=== PATIENT | female | born 1950 | race Hispanic/Latino ===

== ENCOUNTER 2017-09-13 18:41 | Observation (INO) | payer MEDICARE ==
[~2017-09-13] VITALS: Ht 157.5 cm; Wt 80.7 kg
[2017-09-13] MEDS ORDERED: METOPROLOL SUCC25 MG (19:27)
[2017-09-13] MEDS ORDERED: PANTOPRAZOLE 40 MG 10ML VIAL IV ONE (19:30)
[2017-09-13] MEDS ORDERED: B12 IM (19:30)
[2017-09-13] MEDS ORDERED: ASPIRIN 325 MG TAB PO ONE (19:30)
[2017-09-13] MEDS ORDERED: HYDROCHLOROTH12.5 M1 (19:30)
[2017-09-13] MEDS ORDERED: ASPIRIN 81 MG CHEW TAB PO ONE (22:00)
[2017-09-13] MEDS: FAMOTIDINE 20 MG TAB PO SCH (22:00)
[2017-09-13] MEDS ORDERED: SODIUM CHLORIDE FLUSH 10 ML SYR INJ PRN (22:00)
[2017-09-13] MEDS ORDERED: NITROGLYCERIN 0.4 MG SUBL SL PRN (22:00)
[2017-09-13] MEDS: METOPROLOL TARTRATE 25 MG TAB PO SCH (22:00)
[2017-09-13 23:15] VITALS: BP 140/65
[2017-09-14] VITALS (8 sets, daily range): BP systolic 126–146; BP diastolic 57–69
[2017-09-14 07:32] LABS: CREATINE KINASE MB 1.3 ng/mL (0-5.0)
[2017-09-14 08:21] LABS: CHOL/HDL RATIO 3.2 (3.0-3.6)
[2017-09-14] MEDS: FAMOTIDINE 20 MG TAB PO SCH ×2 (08:27→21:26)
[2017-09-14] MEDS: ASPIRIN 81 MG ENTERIC COATED PO SCH (08:27)
[2017-09-14] MEDS: METOPROLOL TARTRATE 25 MG TAB PO SCH ×2 (10:00→21:26)
[2017-09-14] MEDS ORDERED: ACETAMINOPHEN 325 MG TAB PO PRN (14:30)
[2017-09-14 15:15] LABS: CREATINE KINASE MB 1.2 ng/mL (0-5.0)
[2017-09-14 17:40] LABS: ALBUMIN 3.3 g/dL (3.5-5.0); BILIRUBIN,DIRECT 0.2 mg/dL (0.0-0.5)
[2017-09-14 18:11] LABS: CLARITY,URINE CLEAR (CLEAR); COLOR,URINE YELLOW (YELLOW)
[2017-09-14 18:12] LABS: BILIRUBIN,URINE NEGATIVE (NEGATIVE); KETONES,URINE NEGATIVE (NEGATIVE); LEUKOCYTE ESTERASE ,URINE NEGATIVE (NEGATIVE); NITRITE,URINE NEGATIVE (NEGATIVE); PROTEIN,URINE DIPSTICK NEGATIVE (NEGATIVE); URINE UROBILINOGEN 0.2 mg/dL (0.2 - 1)
[2017-09-14 18:19] LABS: BACTERIA,URINE MODERATE /HPF; EPITHELIAL CELLS,URINE MODERATE /LPF
[2017-09-14 18:20] LABS: MUCUS,URINE FEW (RARE)
--- NOTE | 2017-09-14 18:48 | History and Physical ---
CHIEF COMPLAINT: Chest pain and palpitations. HISTORY OF PRESENT ILLNESS: Ms. Manning is a 67-year-old female who went to the [facility] free standing emergency room with complaints of chest pain and palpitations. The patient started having these symptoms for 3 days, progressively getting worse. It was episodic. Denies any nausea or vomiting with it. She reported increasing urination. She has borderline diabetes. She reports that she has a history of aneurysm. The patient underwent a CTA of the chest, abdomen and pelvis in the free standing emergency room which is reported as no acute pulmonary embolism and no aneurysm. It reported ground glass in the CT of the chest. I have reviewed the images. It is due to poor inspiration, but there is no other evidence of any other disease in the lower lobes of the lung. There is cholelithiasis reported as well. REVIEW OF SYSTEMS: GENERAL: Denies any fever or chills. HEAD: Denies any head trauma. ENT: Denies any earache. CVS: Palpitations. GI: Denies any nausea or vomiting. : Increased urinary frequency. MUSCULOSKELETAL: Denies any arthralgias, myalgias. NEUROLOGIC: Denies any focal weakness. Rest of the review of systems are negative except as in HPI. PAST MEDICAL HISTORY: Hypertension, borderline diabetes. PAST SURGICAL HISTORY: Tubal ligation. FAMILY AND SOCIAL HISTORY: She is a . She lives by herself. Her son and duttnpvk-xo-syu occasionally live with her. She still works. 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 PHYSICAL EXAMINATION VITAL SIGNS: Temperature 97.8, pulse 60, blood pressure 141/69, respiratory rate 18, O2 sat 98% on 2 liters. SKIN: Warm and dry. HEENT: Head is atraumatic and normocephalic. Pupils are reactive. NECK: Supple. CHEST: Clear to auscultation bilaterally. No wheezing, no crackles. HEART: S1 and S2 audible. ABDOMEN: Soft, nontender and nondistended. EXTREMITIES: No clubbing, cyanosis, trace edema. NEURO: Awake and alert. Oriented. No focal neurologic deficits. LABORATORY DATA: At free standing emergency room showed white count of 6.8, hemoglobin 13.8, hematocrit 41.6, platelets 176,000. Sodium 140, potassium 3.2, chloride 103, bicarb 30, BUN 15, creatinine 1.1. She had a urinalysis which is negative for any glucose or bilirubin. Cardiac enzymes, here, 2 sets are negative. Echo official report is pending. The preliminary showed EF 65%. ASSESSMENT: Ms. Manning is a 67-year-old female who presented with hypertension and chest discomfort. No pulmonary embolism on CT of the chest. No other abnormalities. The ground glass which is reported is likely due to poor inspiratory effort and atelectasis. Cholelithiasis has been reported, but no cholecystitis. PLAN: 1. We will do ultrasound of liver and gallbladder. 2. Cardiology consultation. 3. Continue the patient on home medications. 4. Will check urinalysis and will do microscopy to rule out any urinary tract infection. Job#: [id number]
[2017-09-14] MEDS ORDERED: CEFTRIAXONE SOD 1 GM VIAL IV ONE (21:00)
[2017-09-15] VITALS: BP 139/63
--- NOTE | 2017-09-15 | Consultation ---
DATE OF CONSULTATION: September 14, 2017 CARDIOLOGY CONSULTATION REQUESTING PHYSICIAN: Dr. Sim Ferrari REASON FOR CONSULTATION: Chest pain. HISTORY OF PRESENT ILLNESS: This is a 67-year-old woman with history of borderline diabetes and aortic aneurysm, who presented with complaint of chest pain. The patient reports she noted chest pain with laying down for the last week. She states that the pain is 3/10-4/10 in severity and describes the pain as a poking sensation that woke her up from sleep. The pain lasted 5 minutes at a time without associated shortness of breath, nausea or diaphoresis. She denies any edema, orthopnea or PND. However, she does note she has been dyspneic with exertion for the last month and has experienced palpitations for years. REVIEW OF SYSTEMS: Negative except as per HPI. PAST MEDICAL HISTORY 1. Borderline diabetes. 2. Reported history of aortic aneurysm. PAST SURGICAL HISTORY: Tubal ligation. SOCIAL HISTORY: No tobacco, alcohol or illicit drugs. FAMILY HISTORY: Noncontributory. PHYSICAL EXAM VITALS: Temperature 96.1 degrees, pulse 56, respiratory rate 20, blood pressure 137/60, oxygen saturation 98% on room air. GENERAL: A well-developed, well-nourished woman in no acute distress. HEENT: Normocephalic, atraumatic. Pupils equal. No scleral icterus. NECK: Supple. No thyromegaly or cervical lymphadenopathy, no carotid bruits. LUNGS: Clear to auscultation bilaterally. No wheezes or crackles. CARDIOVASCULAR: Normal rate, regular rhythm. No murmur. Normal S1/S2. ABDOMEN: Soft, nontender. EXTREMITIES: No edema. NEURO: Nonfocal. LABS: Troponin 0.012. Cholesterol 183, LDL 109, HDL 58, triglycerides 81. EKG: Sinus rhythm with frequent PVCs and possible PACs with aberrant conduction. Inferior infarct age undetermined. CT OF CHEST, ABDOMEN, AND PELVIS: From the outside facility, was reviewed. There was no evidence of aneurysm or pulmonary embolus. IMPRESSIONS 1. Chest pain. 2. Palpitations. 3. Reported history of aortic aneurysm. RECOMMENDATIONS: Patient ruled out for myocardial infarction with serial cardiac biomarkers. Monitor patient on telemetry. She will need outpatient Holter monitor to determine her frequency of PVCs. Echocardiogram has been done. There was normal LV size and thickness with overall LV systolic function between 55% and 60%. Impaired LV relaxation. Patient can be discharged from a cardiac standpoint with plan for outpatient Holter monitor and nuclear stress test. Continue current cardiac medications, otherwise. Thank you for this consult. We will continue to follow. Job#: [id number] CQ
[2017-09-15 00:37] LABS: CREATINE KINASE 66 IU/L (29-168)
[2017-09-15 04:00] VITALS: BP 110/58
[2017-09-15 06:51] LABS: BASOPHILS % 0.3 % (0.0-1.0); EOSINOPHILS # (AUTO) 0.1 (0.0-0.4); EOSINOPHILS % 1.3 % (0.0-6.0); HEMATOCRIT 41.2 % (34.2-44.1); HEMOGLOBIN 13.1 g/dL (12.0-16.0); LYMPHOCYTES # (AUTO) 1.7 (1.0-3.2); LYMPHOCYTES % 23.2 % (18.0-39.1); MEAN CORPUSCULAR HGB CONC 31.8 g/dL (31-35); MONOCYTES # (AUTO) 0.6 (0.2-0.8); MONOCYTES % 8.9 % (4.4-11.3); NEUTROPHILS # (AUTO) 4.8 (2.1-6.9); NEUTROPHILS % 65.9 % (38.7-80.0); PLATELET COUNT 184 x10e3/uL (140-360); RED BLOOD COUNT 4.68 x10e6/uL (3.6-5.1); RED CELL DISTRIBUTION WIDTH 14.3 % (11.7-14.4)
[2017-09-15 07:12] LABS: CALCIUM 8.9 mg/dL (8.4-10.2); CREATININE, SERUM 1.01 mg/dL (0.57-1.11)
[2017-09-15 07:35] VITALS: BP 110/58
[2017-09-15 07:59] VITALS: BP 106/61
[2017-09-15] MEDS ORDERED: CEFTRIAXONE SOD 1 GM VIAL IV SCH (09:00)
[2017-09-15] MEDS: METOPROLOL TARTRATE 25 MG TAB PO SCH (09:15)
[2017-09-15] MEDS: ASPIRIN 81 MG ENTERIC COATED PO SCH (09:15)
[2017-09-15] MEDS: FAMOTIDINE 20 MG TAB PO SCH (09:15)
[2017-09-15 12:26] VITALS: BP 150/73
--- NOTE | 2017-09-15 12:40 | Discharge Summary ---
FINAL DIAGNOSES 1. Urinary tract infection. 2. Chest pain and palpitations. ADMISSION HISTORY AND HOSPITAL COURSE: Ms. Manning is a 67-year-old female who was admitted with chest discomfort and palpitations. Cardiology was consulted. Patient was evaluated by Dr. Sewell, and she recommended outpatient stress test. Echo was done and read as impaired LV relaxation with possible diastolic problem, but EF was 55% to 60%. CTA of the chest was done, which did not show any evidence of pulmonary embolism or dissection. Cardiac enzymes were checked, and they were within normal limits. Patient complained of increased urinary frequency. A UA with microscopy was checked, which showed evidence of UTI. Patient was continued on IV Rocephin. Incidental finding on the CT of the chest, abdomen and pelvis showed cholelithiasis. Patient has opted to have an outpatient ultrasound of the gallbladder. She will be discharged home on p.o. cefpodoxime 100 mg b.i.d. for 4 days for UTI. She is ALLERGIC TO MOXIFLOXACIN. She will follow up with Cardiology and her primary care physician as outpatient. Discharge medications reviewed. ELOISA DOZIER MD Job#: [id number] DOROTEO
--- NOTE | 2017-09-15 13:26 | Diagnostic Imaging Report ---
PROCEDURE:US GALLBLADDER COMPARISON:Outside hospital CT the abdomen INDICATIONS:cholelithiasis TECHNIQUE: Magaña-scale and color doppler transverse and longitudinal images of the right upper quadrant of the abdomen were obtained. FINDINGS: Liver: 15.3 cm in right mid-clavicular line. Normal echogenicity. No masses. Main portal vein: 0.7 cm, normal, hepatopedal flow Gallbladder: A small amount of mobile debris is present in the gallbladder Common Bile Duct: 0.2 cm pulmonary dilatation Sonographic Arias's sign: Negative Right kidney: 9.4 cm. Normal echogenicity. No solid masses or hydronephrosis. Pancreas: The visualized portions are unremarkable. Inferior vena cava: Patent Aorta: Within normal limits Ascites: None in the right upper quadrant of the abdomen. CONCLUSION: A small amount of mobile debris/sludge is present in the gallbladder. No evidence of acute cholecystitis. Dictated by: Chirag Medina M.D. on 09/15/2017 at 13:27 Electronically approved by: Chirag Medina M.D. on 09/15/2017 at 13:27
== END 2017-09-15 13:25 | disposition home or self-care (01) ==
LOC: FSED 18:41 → INTOOBSV 22:56 → MED/SURG 22:56
PROVIDERS: ADMIT Internal Medicine; ATTEND Internal Medicine
DX: R07.9 Chest pain, unspecified (principal); N39.0 Urinary tract infection, site not specified; R00.2 Palpitations; K80.20 Calculus of gallbladder without cholecystitis without obstruction; I10 Essential (primary) hypertension; E11.9 Type 2 diabetes mellitus without complications; Z88.1 Allergy status to other antibiotic agents; I71.2 Thoracic aortic aneurysm, without rupture
CPT/HCPCS: 36415 ×2; 71260; 71275; 74174; 76705; 80048; 80053; 80061; 80076; 81001; 81003; 82550; 82553 ×2; 83880 ×2; 84484 ×2; 85025 ×2; 85379; 85610; 93005; 93306; 99284; G0378 ×3; J0696 ×2

== ENCOUNTER 2017-09-15 18:40 | Observation (INO) | payer MEDICARE ==
[~2017-09-15] VITALS: Ht 144.8 cm; Wt 54.5 kg
[~2017-09-15 18:40] MED LIST: B12 IM; HYDROCHLOROTH12.5 M1; METOPROLOL SUCC25 MG
--- OUTSIDE RECORDS SUMMARY | 2017-09-15 18:42 | XMS REPORT ---
Author Author [facility] Address Unknown Phone Unavailable Care Team Providers Care Tunnel Drier Operator Name Role Phone ELOISA DOZIER Unavailable Unavailable Problems This patient has no known problems. Allergies, Adverse Reactions, Alerts This patient has no known allergies or adverse reactions. Medications This patient has no known medications. Results Test Description Test Time Test Comments Text Results Atomic Results Result Comments US GALLBLADDER [place] [id number] Patient Name: MELISSA LOVELACE MR #: [id number] : 1950 Age/Sex: 67/F Req #: [id number] Adm Physician: ELOISA DOZIER MD Ordered by : ELOISA DOZIER MD Report #: [id number] Location: MED/SURG Room/Bed: [facility] Procedure: [id number] US/US GALLBLADDER Exam Date: 09/15/17 Exam Time: 08 REPORT STATUS: Signed PROCEDURE: US GALLBLADDER COMPARISON: Outside hospital CT the abdomen INDICATIONS: cholelithiasis TECHNIQUE: Magaña-scale and color doppler transverse and longitudinal images of the right upper quadrant of the abdomen were obtained. FINDINGS: Liver: 15.3 cm in right mid- clavicular line. Normal echogenicity. No masses. Main portal vein: 0.7 cm, normal, hepatopedal flow Gallbladder: A small amount of mobile debris is present in the gallbladder Common Bile Duct: 0.2 cm pulmonary dilatation Sonographic Arias's sign: Negative Right kidney: 9.4 cm. Normal echogenicity. No solid masses or hydronephrosis. Pancreas: The visualized portions are unremarkable. Inferior vena cava: Patent Aorta: Within normal limits Ascites: None in the right upper quadrant of the abdomen. CONCLUSION: A small amount of mobile debris/sludge is present in the gallbladder. No evidence of acute cholecystitis. Dictated by: Diana Medina M.D. on 09/15/2017 at 13:27 Electronically approved by: Diana Medina M.D. on 09/15/2017 at 13:27 Dictated By: DIANA MEDINA MD [id number] Transcribed By: TY on 09/15/17 1327 COPY TO: ELOISA DOZIER MD
--- OUTSIDE RECORDS SUMMARY | 2017-09-15 18:42 | XMS REPORT | Continuity of Care Document ---
Author Author [facility] Organization [facility] Address [address] [place] [address] Phone Unavailable Care Team Providers Care Director Content Marketing Name Role Phone NONSTAFF PCP Unavailable Insurance Providers Guarantor Melissa Lovelace Address [address] [place] [address] Email NONE Payer Medicare A & B Policy Number [id number] Subscriber's Name Melissa Lovelace Relationship 18 Self / Same As Patient Effective Date 17 Advance Directives Directive Response Recorded Date/Time Does the patient have an advance directive? No 09/13/17 11:15pm Do you have a Directive to Physician? No 09/13/17 7:49pm Do you have a Medical Power of Job Analysis Manager? No 09/13/17 7:49pm Do you have an out of hospital Do Not Resuscitate Order? No 09/13/17 7:49pm Do you have any special needs we should be aware of? No 09/13/17 7:49pm Do you have a support person here with you today? No 09/13/17 7:49pm Did patient receive Notice of Privacy Practices? Yes 09/13/17 7:49pm Did patient receive patient rights and responsibilities? Yes 09/13/17 7:49pm Problems Medical Problem Onset Date Status Chest pain Unknown Palpitations Unknown SOB (shortness of breath) Unknown Medications Current Home Medications Medication Dose Units Route Directions Days Qty Instructions Start Date B12 1 Ml Intramusc Use As Directed Hydrochlorothiazide 12.5 Mg Capsule Metoprolol Succinate 25 Mg Tab.er.24h Daily Social History Social History Problem Response Recorded Date/Time Onset Date Status Hx Psychiatric Problems No 09/13/2017 11:15pm Not Applicable Not Applicable Smoking Status Start Date Stop Date Never Smoker Hospital Discharge Instructions No hospital discharge instruction information available. Plan of Care Discharge Date 09/15/17 1:25pm Disposition HOME, SELF-CARE Instructions/Education Provided Chest Pain - Noncardiac Urinary Tract Infection - Women Prescriptions See Medication Section Additional Instructions/Education TAKE ANTIBIOTICS ORDERED. FOLLOW UP WITH PRIMARY CARE PROVIDER IN 1-2 WEEKS. Functional Status Query Response Date Recorded Assistive Devices None September 13, 2017 11:15pm Ambulation Ability Independent September 13, 2017 11:15pm Toileting Ability Independent September 15, 2017 1:17pm Allergies, Adverse Reactions, Alerts Allergen Type Severity Reaction Status Last Updated Moxifloxacin Allergy Unknown Active 09/14/17 AVOLOX Allergy Unknown Active 09/13/17 Immunizations No immunization information available. Vital Signs Acute Vital Signs Vital Response Date/Time Temperature (Fahrenheit) 97.2 degrees F (97.6 - 99.5) 09/15/2017 7:59am Pulse Pulse Rate (adult) 75 bpm (60 - 90) 09/15/2017 12:26pm Respiratory Rate 20 bpm (12 - 24) 09/15/2017 12:26pm Blood Pressure 150/73 mm Hg 09/15/2017 12:26pm Height 5 ft 2 in 09/13/2017 7:16pm Weight 178 lb 09/13/2017 7:16pm Body Mass Index 32.6 kg/m^2 09/13/2017 11:15pm Results Laboratory Results Test Name Result Units Flags Reference Collection Date/Time Result Date/ Time Comments White Blood Count 7.20 x10e3/uL 4.8-10.8 09/15/2017 6:30am 09/15/2017 6 :53am Red Blood Count 4.68 x10e6/uL 3.6-5.1 09/15/2017 6:30am 09/15/2017 6: 53am Hemoglobin 13.1 g/dL 12.0-16.0 09/15/2017 6:3009/15/2017 6:53am Hematocrit 41.2 % 34.2-44.1 09/15/2017 6:3009/15/2017 6:53am Mean Corpuscular Volume 88.0 fL 81-99 09/15/2017 6:3009/15/2017 6: 53am Mean Corpuscular Hemoglobin 28.0 pg 28-32 09/15/2017 6:3009/15/2017 6:53am Mean Corpuscular Hemoglobin Concent 31.8 g/dL 31-35 09/15/2017 6:3009/15/2017 6:53am Red Cell Distribution Width 14.3 % 11.7-14.4 09/15/2017 6:2017 6:53am Platelet Count 184 x10e3/uL 140-360 09/15/2017 6:am 09/15/2017 6: 53am Neutrophils (%) (Auto) 65.9 % 38.7-80.0 09/15/2017 6:09/15/2017 6: 53am Lymphocytes (%) (Auto) 23.2 % 18.0-39.1 09/15/2017 6:09/15/2017 6: 53am Monocytes (%) (Auto) 8.9 % 4.4-11.3 09/15/2017 6:09/15/2017 6: 53am Eosinophils (%) (Auto) 1.3 % 0.0-6.0 09/15/2017 6:09/15/2017 6: 53am Basophils (%) (Auto) 0.3 % 0.0-1.0 09/15/2017 6:09/15/2017 6:53am IM GRANULOCYTES % 0.4 % 0.0-1.0 09/15/2017 6:09/15/2017 6:53am Neutrophils # (Auto) 4.8 2.1-6.9 09/15/2017 6:09/15/2017 6:53am Lymphocytes # (Auto) 1.7 1.0-3.2 09/15/2017 6:3009/15/2017 6:53am Monocytes # (Auto) 0.6 0.2-0.8 09/15/2017 6:30am 09/15/2017 6:53am Eosinophils # (Auto) 0.1 0.0-0.4 09/15/2017 6:30am 09/15/2017 6:53am Basophils # (Auto) 0.0 0.0-0.1 09/15/2017 6:30am 09/15/2017 6:53am Absolute Immature Granulocyte (auto 0.03 x10e3/uL 0-0.1 09/15/2017 6: 30am 09/15/2017 6:53am Urine Color YELLOW YELLOW 09/14/2017 6:00pm 09/14/2017 6:12pm Urine Clarity CLEAR CLEAR 09/14/2017 6:00pm 09/14/2017 6:12pm Urine Specific [place] 1.020 1.010-1.025 09/14/2017 6:00pm 2017 6:12pm Urine pH 5 5 - 7 09/14/2017 6:00pm 09/14/2017 6:12pm Urine Leukocyte Esterase NEGATIVE NEGATIVE 09/14/2017 6:00pm 2017 6:12pm Urine Nitrite NEGATIVE NEGATIVE 09/14/2017 6:00pm 09/14/2017 6:12pm Urine Protein NEGATIVE NEGATIVE 09/14/2017 6:00pm 09/14/2017 6:12pm Urine Glucose (UA) NEGATIVE NEGATIVE 09/14/2017 6:00pm 09/14/2017 6: 12pm Urine Ketones NEGATIVE NEGATIVE 09/14/2017 6:00pm 09/14/2017 6:12pm Urine Urobilinogen 0.2 mg/dL 0.2 - 1 09/14/2017 6:00pm 09/14/2017 6: 12pm Urine Bilirubin NEGATIVE NEGATIVE 09/14/2017 6:00pm 09/14/2017 6: 12pm Urine Blood TRACE H NEGATIVE 09/14/2017 6:00pm 09/14/2017 6:12pm Urine WBC 6-10 /HPF H 0-5 09/14/2017 6:00pm 09/14/2017 6:20pm Urine RBC 6-10 /HPF H 0-5 09/14/2017 6:00pm 09/14/2017 6:20pm Urine Bacteria MODERATE /HPF H NONE 09/14/2017 6:00pm 09/14/2017 6:20pm Urine Epithelial Cells MODERATE /LPF NONE 09/14/2017 6:00pm 09/14/2017 6:20pm Urine Mucus FEW H RARE 09/14/2017 6:00pm 09/14/2017 6:20pm Sodium Level 141 mmol/L 136-145 09/15/2017 6:30am 09/15/2017 7:14am Potassium Level 4.0 mmol/L 3.5-5.1 09/15/2017 6:30am 09/15/2017 7:14am Chloride Level 105 mmol/L 98-107 09/15/2017 6:30am 09/15/2017 7:14am Carbon Dioxide Level 30 mmol/L H 22-29 09/15/2017 6:30am 09/15/2017 7: 14am Anion Gap 10.0 mmol/L 8-09/15/2017 6:30am 09/15/2017 7:14am Blood Urea Nitrogen 16 mg/dL 7-09/15/2017 6:30am 09/15/2017 7:14am Creatinine 1.01 mg/dL 0.57-1.11 09/15/2017 6:30am 09/15/2017 7:14am BUN/Creatinine Ratio 16 6-09/15/2017 6:30am 09/15/2017 7:14am Estimat Glomerular Filtration Rate 55 ML/MIN L 60- 09/15/2017 6:30am 7:14am Ranges were taken from the National Kidney Disease Education Program and the National Kid[employer] Foundation literature. Reference ranges: 60 or greater: Normal 16-59 (for 3 consecutive months): Chronic kidney disease 15 or less: Kidney failure Glucose Level 92 mg/dL 74-118 09/15/2017 6:30am 09/15/2017 7:14am Calcium Level 8.9 mg/dL 8.4-10.2 09/15/2017 6:30am 09/15/2017 7:14am Total Bilirubin 0.6 mg/dL 0.2-1.2 09/14/2017 2:35pm 09/14/2017 5:40pm Direct Bilirubin 0.2 mg/dL 0.0-0.5 09/14/2017 2:35pm 09/14/2017 5:40pm Aspartate Amino Transf (AST/SGOT) 15 IU/L 5-34 09/14/2017 2:35pm 2017 5:40pm Alanine Aminotransferase (ALT/SGPT) 13 IU/L 0-55 09/14/2017 2:35pm 5:40pm Total Protein 6.6 g/dL 6.5-8.1 09/14/2017 2:35pm 09/14/2017 5:40pm Albumin 3.3 g/dL L 3.5-5.0 09/14/2017 2:35pm 09/14/2017 5:40pm Alkaline Phosphatase 59 IU/L 40-150 09/14/2017 2:35pm 09/14/2017 5: 40pm Triglycerides Level 81 MG/DL 0-149 09/14/2017 6:37am 09/14/2017 8:21am Cholesterol Level 183 MD/DL 0-199 09/14/2017 6:37am 09/14/2017 8:21am Less than 200 mg/dL Low Risk 201 - 239 mg/dL Borderline Risk 240 mg/dl and greater High Risk LDL Cholesterol 109 MG/DL 60-130 09/14/2017 6:37am 09/14/2017 8:21am HDL Cholesterol 58 MG/DL 40-60 09/14/2017 6:37am 09/14/2017 8:21am Cholesterol/HDL Ratio 3.2 3.0-3.6 09/14/2017 6:37am 09/14/2017 8: 21am B-Type Natriuretic Peptide 44.2 pg/mL 0-100 09/14/2017 2:35pm 2017 6:01pm Creatine Kinase 66 IU/L 29-168 09/14/2017 11:50pm 09/15/2017 12:38am Creatine Kinase MB 1.00 ng/mL 0-5.0 09/14/2017 11:50pm 09/15/2017 12: 38am Troponin I < 0.001 ng/mL 0-0.300 09/14/2017 11:50pm 09/15/2017 12:38am Procedures Procedure Status Date Provider(s) US gallbladder Active 09/15/17 ELOISA DOZIER MD Encounters Encounter Location Arrival/Admit Date Discharge/Depart Date Attending Provider Discharged Inpatient (obs) [facility] 09/13/17 10:56pm 1:25pm ELOISA DOZIER MD
[2017-09-15 20:29] LABS: BASOPHILS % 0.4 % (0.0-1.0); EOSINOPHILS # (AUTO) 0.1 (0.0-0.4); EOSINOPHILS % 1.7 % (0.0-6.0); HEMATOCRIT 44.5 % (34.2-44.1); HEMOGLOBIN 14.6 g/dL (12.0-16.0); LYMPHOCYTES # (AUTO) 2.2 (1.0-3.2); LYMPHOCYTES % 29.4 % (18.0-39.1); MEAN CORPUSCULAR HEMOGLOBIN 28.5 pg (28-32); MEAN CORPUSCULAR HGB CONC 32.8 g/dL (31-35); MEAN CORPUSCULAR VOLUME 86.7 fL (81-99); MONOCYTES # (AUTO) 0.6 (0.2-0.8); MONOCYTES % 8.3 % (4.4-11.3); NEUTROPHILS # (AUTO) 4.5 (2.1-6.9); NEUTROPHILS % 59.9 % (38.7-80.0); PLATELET COUNT 192 x10e3/uL (140-360); RED BLOOD COUNT 5.13 x10e6/uL (3.6-5.1); RED CELL DISTRIBUTION WIDTH 14.1 % (11.7-14.4)
[2017-09-15 20:51] LABS: ALANINE AMINOTRANSFERASE 9 IU/L (0-55); ALBUMIN 3.6 g/dL (3.5-5.0); ALBUMIN/GLOBULIN RATIO 0.9 (0.8-2.0); ALKALINE PHOSPHATASE 70 IU/L (40-150); ANION GAP 16.3 mmol/L (8-16); BLOOD UREA NITROGEN 20 mg/dL (7-26); BUN/CREATININE RATIO 21 (6-25); CALCIUM 9.4 mg/dL (8.4-10.2); CARBON DIOXIDE 22 mmol/L (22-29); CHLORIDE 107 mmol/L (98-107); CREATINE KINASE 72 IU/L (29-168); CREATININE, SERUM 0.96 mg/dL (0.57-1.11); EST GLOMERULAR FILTRATION RATE 58 ML/MIN (60-); GLUCOSE 102 mg/dL (74-118); POTASSIUM 4.3 mmol/L (3.5-5.1); SODIUM 141 mmol/L (136-145)
[2017-09-15 20:56] LABS: BILIRUBIN,URINE NEGATIVE (NEGATIVE); CLARITY,URINE CLEAR (CLEAR); COLOR,URINE YELLOW (YELLOW); KETONES,URINE NEGATIVE (NEGATIVE); LEUKOCYTE ESTERASE ,URINE TRACE (NEGATIVE); NITRITE,URINE NEGATIVE (NEGATIVE); PROTEIN,URINE DIPSTICK NEGATIVE (NEGATIVE); URINE UROBILINOGEN 0.2 mg/dL (0.2 - 1)
[2017-09-15 20:57] LABS: AMPHETAMINES SCREEN,URINE NEGATIVE (NEGATIVE); BENZODIAZEPINES SCREEN,URINE NEGATIVE (NEGATIVE); PHENCYCLIDINE SCREEN,URINE NEGATIVE (NEGATIVE)
[2017-09-15 21:18] LABS: EPITHELIAL CELLS,URINE FEW /LPF
--- NOTE | 2017-09-15 22:17 | Diagnostic Imaging Report ---
CHEST SINGLE (PORTABLE), 09/15/2017 8:03 PM Technique: CHEST SINGLE (PORTABLE) Comparison: None available. Clinical history: Shortness of breath, chest pain Findings: Unremarkable appearance of the heart, mediastinum, lungs and pleural spaces. Impression: 1. Lines/Tubes: None 2. No acute abnormality. Signed by: Dr Erlinda Rodriguez MD on 09/15/2017 10:14 PM
[2017-09-15] MEDS ORDERED: NITROGLYCERIN 0.4 MG SUBL SL PRN (23:00)
[2017-09-15] MEDS ORDERED: ASPIRIN 81 MG CHEW TAB PO ONE (23:00)
[2017-09-15] MEDS ORDERED: ONDANSETRON HCL INJ 2 MG/ML VIAL IV PRN (23:00)
[2017-09-16] VITALS (7 sets, daily range): BP systolic 112–146; BP diastolic 58–71
[2017-09-16 06:55] LABS: BASOPHILS % 0.3 % (0.0-1.0); EOSINOPHILS # (AUTO) 0.1 (0.0-0.4); HEMATOCRIT 39.8 % (34.2-44.1); HEMOGLOBIN 12.8 g/dL (12.0-16.0); LYMPHOCYTES # (AUTO) 2.1 (1.0-3.2); MEAN CORPUSCULAR HEMOGLOBIN 28.3 pg (28-32); MEAN CORPUSCULAR HGB CONC 32.2 g/dL (31-35); MEAN CORPUSCULAR VOLUME 87.9 fL (81-99); MONOCYTES # (AUTO) 0.7 (0.2-0.8); MONOCYTES % 10.8 % (4.4-11.3); NEUTROPHILS # (AUTO) 3.2 (2.1-6.9); NEUTROPHILS % 51.7 % (38.7-80.0); PLATELET COUNT 182 x10e3/uL (140-360); RED BLOOD COUNT 4.53 x10e6/uL (3.6-5.1); RED CELL DISTRIBUTION WIDTH 14.3 % (11.7-14.4)
[2017-09-16 07:08] LABS: INR 1.09; PARTIAL THROMBOPLASTIN TIME 31.5 seconds (23.8-35.5); PROTHROMBIN TIME 13.3 seconds (11.9-14.5)
[2017-09-16 07:26] LABS: CREATINE KINASE 55 IU/L (29-168)
[2017-09-16 07:47] LABS: ALANINE AMINOTRANSFERASE 7 IU/L (0-55); ALBUMIN/GLOBULIN RATIO 0.9 (0.8-2.0); ALKALINE PHOSPHATASE 57 IU/L (40-150); BLOOD UREA NITROGEN 19 mg/dL (7-26); BUN/CREATININE RATIO 21 (6-25); CALCIUM 8.9 mg/dL (8.4-10.2); CARBON DIOXIDE 30 mmol/L (22-29); CHLORIDE 107 mmol/L (98-107); CHOL/HDL RATIO 2.8 (3.0-3.6); CHOLESTEROL 166 MD/DL (0-199); EST GLOMERULAR FILTRATION RATE > 60 ML/MIN (60-); GLUCOSE 96 mg/dL (74-118); HDL CHOLESTEROL 60 MG/DL (40-60); LDL CHOLESTEROL 94 MG/DL (60-130); SODIUM 142 mmol/L (136-145); TRIGLYCERIDES 60 MG/DL (0-149)
[2017-09-16] MEDS: ASPIRIN 81 MG ENTERIC COATED PO SCH (08:30)
[2017-09-16] MEDS: CEFTRIAXONE SOD 1 GM VIAL IV SCH (10:00)
--- NOTE | 2017-09-16 10:09 | History and Physical ---
CHIEF COMPLAINT: Chest pain and palpitations. HPI: Ms. Manning is a 67-year-old female who was discharged from the hospital yesterday and came back with similar complaints of chest pain, palpitations and exertional dyspnea. The patient underwent a CTA of the chest 2 days ago, and did not show any evidence of PE or dissection. She was discharged home after cardiology recommendation to do outpatient stress test. She denies any nausea, vomiting or diarrhea. REVIEW OF SYSTEMS GENERAL: Denies any fever or chills. HEENT: Denies any head trauma. ENT: Denies any earaches. CV: Chest pain and palpitations. RESPIRATORY: Dyspnea on exertion. The rest of the review of systems are negative, except as in HPI. PAST MEDICAL HISTORY: Hypertension, borderline diabetes. PAST SURGICAL HISTORY: Tubal ligation. FAMILY AND SOCIAL HISTORY: She is . Lives by herself. Her son and bbrjgyuz-eo-cjs occasionally live with her. She still works. Works for an insurance company at a desk job. She does not smoke. Does not drink. PHYSICAL EXAMINATION VITAL SIGNS: Temperature 97, pulse 60, blood pressure 112/60, respiratory rate 18, O2 sat 98%. SKIN: Warm and dry. HEENT: Head is atraumatic and normocephalic. NECK: Supple. No JVD. Thyroid not enlarged. CHEST: Clear to auscultation bilaterally. No wheezing. HEART: S1 and S2 audible. ABDOMEN: Soft and nontender. EXTREMITIES: No clubbing, cyanosis or edema. NEUROLOGIC: Awake and alert. LABS: White count of 6.09, hemoglobin 12.8 and platelets 182,000. Chemistry is within normal limits. Troponins have been negative. Chest x-ray was done yesterday showing no acute abnormalities. Gallbladder ultrasound was done as well and the patient had cholelithiasis. Ultrasound of the gallbladder with no evidence of acute cholecystitis. ASSESSMENT AND PLAN: A 67-year-old female with exertional dyspnea and chest pain, recently discharged and came in with similar complaints. Pulmonary embolism, cholecystitis and dissection has been ruled out. PLAN 1. Cardiology consult. 2. Will resume IV Rocephin for UTI, which she was diagnosed during last admission. Job#: [id number] FL
[2017-09-16 17:18] LABS: CREATINE KINASE 62 IU/L (29-168)
--- NOTE | 2017-09-16 19:00 | Cardiology Report ---
DATE OF STUDY: LEXISCAN STRESS TEST SUPERVISED BY: Marlin Sewell MD INTERPRETED BY: Gianni Chambers MD PROCEDURE INDICATIONS: Chest pain. INTERPRETATION: A treadmill exercise stress test was performed. At rest, heart rate was 84 beats per minute. Resting EKG was normal sinus rhythm with nonspecific repolarization abnormalities and occasional PVCs. After a total of 5 minutes and 2 seconds of George protocol treadmill stress test with 2 minutes and 2 seconds into stage 2, heart rate increased to peak of 153 beats per minute. Blood pressure increased to a peak of 146/96. There were S/T depressions in the inferior and lateral leads of 1 millivolt horizontal. Myocardial perfusion reveals normal rest and stress perfusion. Gaited images demonstrate preserved left ventricular systolic function. Normal region wall motion. Left ventricular ejection fraction of 60%. Total mets was 7. Recovering heart rate at 1 minute was 122, which was adequate. CONCLUSION 1. Normal hemodynamic response to treadmill stress. 2. Inconclusive electrocardiogram response (false positive in light of normal stress and PI). 3. Normal myocardial perfusion. 4. Preserved left ventricular systolic function. Job#: [id number] PA
--- NOTE | 2017-09-16 22:25 | Consultation ---
DATE OF CONSULTATION: September 16, 2017 REQUESTING PHYSICIAN: Dr. Sim Ferrari. REASON FOR CONSULTATION: Chest pain. HISTORY OF PRESENT ILLNESS: This is a 67-year-old woman with history of diabetes mellitus who presented with complaints of lightheadedness, shortness of breath and palpitations. The patient was recently admitted at [facility] after presenting with complaints of chest pain. At that time, she was ruled out for myocardial infarction with serial cardiac biomarkers. Echocardiogram demonstrated normal LV size and systolic function with EF of 55% to 60% and impaired LV relaxation. The patient was discharged home to follow up in cardiology clinic for outpatient nuclear stress test as well as 24-hour Holter monitor. The patient had CTA chest during previous admission without evidence of pulmonary embolism, dissection or aortic aneurysms. After discharge, the patient reports she walked around [employer] and when she was walking into [employer] she began to feel lightheaded and short of breath with worsening shortness of breath while standing in line. She also endorsed palpitations with exertion. She, therefore, presented back to the ER for further evaluation. The patient denies chest pain, edema, orthopnea, or PND. REVIEW OF SYSTEMS: Negative except as per HPI. PAST MEDICAL HISTORY: 1. Borderline diabetes. 2. Hypertension. PAST SURGICAL HISTORY: Tubal ligation. SOCIAL HISTORY: No tobacco, alcohol or illicit drugs. FAMILY HISTORY: Noncontributory. ALLERGIES: PLEASE SEE EMR. MEDICATIONS: Please see medication list. PHYSICAL EXAMINATION VITAL SIGNS: Temperature 97.5 degrees, pulse 60, respiratory rate 18, blood pressure 146/64, oxygen saturation 99% on room air. GENERAL: A well-nourished, well-developed woman in no acute distress. HEENT: Normocephalic, atraumatic. Pupils are equal. No scleral icterus. NECK: Supple. No thyromegaly or cervical lymphadenopathy. No carotid bruits. LUNGS: Clear to auscultation bilaterally. No wheezes or crackles. CARDIOVASCULAR: Normal rate, regular rhythm. No murmurs. Normal S1 and S2. ABDOMEN: Soft and nontender. EXTREMITIES: No edema. NEUROLOGIC: Nonfocal exam. SKIN: No rash appreciated. LABORATORY DATA: WBC 6.09, hemoglobin 39.8, platelets 182,000, sodium 142, potassium 4, chloride 107, CO2 of 30, BUN 19, creatinine 0.9, troponin less than 0.001. BNP 17.3. IMAGING: Chest x-ray no acute abnormalities. EKG demonstrated normal sinus rhythm with PVCs. IMPRESSION 1. Chest pain. 2. Dyspnea on exertion. 3. Palpitations. 4. Borderline diabetes mellitus. 5. Hypertension. RECOMMENDATIONS: Given readmission with complaints of chest pain, we made decision to proceed with treadmill nuclear stress test. There was normal hemodynamic response to treadmill stress with inconclusive ECG response with EKG changes that were likely false positive in light of normal perfusion. Normal myocardial perfusion with normal LV systolic function. The patient ruled out for myocardial infarction with serial cardiac biomarkers. She will need to follow up as an outpatient for 24-hour Holter monitor given her frequent PVCs. Thank you for this consult. We will continue to follow. Job#: [id number] MY
[2017-09-17 00:07] VITALS: BP 121/71
[2017-09-17 04:40] VITALS: BP 115/63
[2017-09-17 07:37] VITALS: BP 99/48
[2017-09-17 07:49] VITALS: BP 126/66
[2017-09-17] MEDS: ASPIRIN 81 MG ENTERIC COATED PO SCH (09:21)
[2017-09-17] MEDS: CEFTRIAXONE SOD 1 GM VIAL IV SCH (09:21)
[2017-09-17] MEDS ORDERED: CITRATE OF MAGNESIA 300ML BOTTLE PO ONE (10:00)
--- NOTE | 2017-09-17 10:50 | Discharge Summary ---
Patient of Dr. Ferrari. The patient was admitted with chest pain and palpitations. She underwent a stress test, which was negative. She underwent ultrasound of the gallbladder, which showed sludge, but no evidence of cholecystitis. She underwent cardiac evaluation by Dr. Sewell of stress test. Verbal report was normal. She was discharged to be followed by her primary care physician. We gave her a copy of her gallbladder ultrasound report. B12 and folate levels were requested at her insistence. She was on B12 replacement. She was discharged to be followed as an outpatient by her primary care physician. Continue her hydrochlorothiazide, metoprolol 25 mg, B12. Liver functions were normal. LDL cholesterol was 94. JAMES BABIN MD Job#: [id number] ME
[2017-09-17] MEDS ORDERED: ONDANSETRON HCL 4 MG ORAL DISINTEGRATING TAB PO PRN (11:30)
[2017-09-17 11:40] VITALS: BP 135/83
[2017-09-17 11:51] LABS: FOLATE 8.3 ng/mL (7.0-15.4)
--- NOTE | 2017-09-17 12:48 | Progress Note ---
DATE: September 17, 2017 CARDIOLOGY PROGRESS NOTE SUBJECTIVE: Patient denies chest pain or shortness of breath. OBJECTIVE VITAL SIGNS: Temperature 97.1 degrees, pulse 66, respiratory rate 16, blood pressure 99/48, oxygen saturation 99% on room air. GENERAL: Awake, alert, in no acute distress. LUNGS: Clear to auscultation bilaterally. No wheezes or crackles. CARDIOVASCULAR: Normal rate, regular rhythm. No murmur. Normal S1 and S2. ABDOMEN: Soft and nontender. EXTREMITIES: No edema. CARDIAC MEDICATIONS: Aspirin 81 mg p.o. daily. LABS: None today. Nuclear stress test with normal perfusion with false-positive EKG changes on stress. TELEMETRY: Normal sinus rhythm. IMPRESSION 1. Chest pain. 2. Dyspnea on exertion. 3. Palpitations. 4. Borderline diabetes mellitus. 5. Hypertension. RECOMMENDATIONS: Patient ruled out for myocardial infarction with serial cardiac biomarkers. Her stress test was without evidence of ischemia. She will need to follow up in the office for a 24-hour Holter monitor to evaluate her PVC burden. Thank you for this consult. We will continue to follow. Job#: [id number]
== END 2017-09-17 13:37 | disposition home or self-care (01) ==
LOC: ER 18:40 → ERHOLD 23:00 → IMCU 23:03
PROVIDERS: ADMIT Internal Medicine; ATTEND Internal Medicine
DX: R07.9 Chest pain, unspecified (principal); E53.8 Deficiency of other specified B group vitamins; E11.9 Type 2 diabetes mellitus without complications; I10 Essential (primary) hypertension; R00.2 Palpitations
CPT/HCPCS: 36415 ×2; 71045; 78452; 80053 ×2; 80061; 80307; 81001; 82550 ×2; 82553 ×2; 82607; 82746; 83090; 83880; 84484 ×2; 85025 ×2; 85610; 85730; 93005; 93017; 96376; 99284; A9502; G0378 ×3; J0696 ×2